=== PATIENT | male | born 1955 | race Caucasian/White ===

== ENCOUNTER 2016-07-22 02:51 | Emergency (ER) | payer BC, MEDICAID ==
[~2016-07-22] VITALS: Ht 172.7 cm; Wt 77.0 kg
[2016-07-22 02:55] VITALS: Ht 172.7 cm; Wt 77.0 kg
[2016-07-22] MEDS ORDERED: ALPR0.5T PO (03:20)
[2016-07-22] MEDS ORDERED: TEMA30CA PO (03:20)
--- NOTE | 2016-07-22 03:27 | ERD ---
ER Documentation Chief Complaint Date/Time DATE: 07/22/16 TIME: 03:25 Chief Complaint states needs medication refill HPI 60-year-old male presents here in emergency department for refill of medication for insomnia. Patient ran out of his medicines, was told by primary care doctor that he needs to get another primary doctor. Patient ran out of these temazepam and alprazolam, patient needs this for sleeping. Patient denies any other complaints. Patient denies homicidal or suicidal ideations. Patient denies any palpitations or irregular heartbeat. Patient cannot see another primary care doctor in the next day, needs 2-3 days worth of supply of medications. ROS All systems reviewed and are negative except as per history of present illness. Medications Home Meds Active Scripts Temazepam* (Temazepam*) 30 Mg Capsule, 30 MG PO HS Y for INSOMNIA, #3 CAP Prov:ERLIN ZARATE [employer]HER 07/22/16 Alprazolam* (Xanax*) 0.5 Mg Tab, 0.5 MG PO Q8H Y for INSOMNIA, #10 TAB Prov:ERLIN ZARATE [employer]GR[employer]HER 07/22/16 Allergies Allergies: Coded Allergies: No Known Drug Allergies (Verified Allergy, Unknown, 07/22/16) PMhx/Soc Medical and Surgical Hx: pt denies Surgical Hx Hx Miscellaneous Medical Probl: Yes (Insomnia) FmHx Family History: No coronary disease, No diabetes, No other Physical Exam Vitals Vital Signs Date Time Temp Pulse Resp B/P Pulse Ox O2 Delivery O2 Flow Rate FiO2 07/22/16 02:55 97.2 81 20 176/94 97 Physical Exam GENERAL: The patient is well developed and appropriate for usual state of health, in no apparent distress. CHEST: Clear to auscultation bilaterally. There are no rales, wheezes or rhonchi. HEART: Regular rate and rhythm. No murmurs, clicks, rubs or gallops. No S3 or S4. ABDOMEN: Soft, nontender and nondistended. Good bowel sounds. No rebound or guarding. No gross peritonitis. No gross organomegaly or masses. No Tamez sign or McBurney point tenderness. BACK: No midline or flank tenderness. EXTREMITIES: Equal pulses bilaterally. There is no peripheral clubbing, cyanosis or edema. No focal swelling or erythema. Full range of motion. Grossly neurovascularly intact. NEURO: Alert and oriented. Cranial nerves 2-12 intact. Motor strength in all 4 extremities with 5/5 strength. Sensation grossly intact. Normal speech and gait. SKIN: There is no apparent rash or petechia. The skin is warm and dry. HEMATOLOGIC AND LYMPHATIC: There is no evidence of excessive bruising or lymphedema. No gross cervical, axillary, or inguinal lymphadenopathy. Procedures/MDM Medical decision making: Patient symptoms are most likely consistent with insomnia, patient is here for medication refill, patient brought his bottles, filled 3 days supplies of medication, patient was given resources where he can go to get refills of his medication and for further primary care management. At this time, no symptoms of his suicidal or homicidal ideation. No symptoms of psychiatric emergencies at this time. Refilled 3 days worth of supply of medications, is advised to follow-up with primary care doctor and see a primary care doctor in 2-3 days before the refill of the rest of his medications. Patient was advised to return here in the emergency department for any worsening symptoms Departure Diagnosis: Primary Impression: Insomnia Insomnia type: unspecified Qualified Code: G47.00 - Insomnia, unspecified type Additional Impression: Encounter for medication refill Condition: Stable Patient Instructions: Taking Medicine Safely, Insomnia Referrals: COMMUNITY CLINICS YOU HAVE RECEIVED A MEDICAL SCREENING EXAM AND THE RESULTS INDICATE THAT YOU DO NOT HAVE A CONDITION THAT REQUIRES URGENT TREATMENT IN THE EMERGENCY DEPARTMENT. FURTHER EVALUATION AND TREATMENT OF YOUR CONDITION CAN WAIT UNTIL YOU ARE SEEN IN YOUR DOCTORS OFFICE WITHIN THE NEXT 1-2 DAYS. IT IS YOUR RESPONSIBILITY TO MAKE AN APPOINTMENT FOR FOLOW-UP CARE. IF YOU HAVE A PRIMARY DOCTOR --you should call your primary doctor and schedule an appointment IF YOU DO NOT HAVE A PRIMARY DOCTOR YOU CAN CALL OUR PHYSICIAN REFERRAL HOTLINE AT IF YOU CAN NOT AFFORD TO SEE A PHYSICIAN YOU CAN CHOSE FROM THE FOLLOWING ON LICENSE OF [facility] CL[facility] [id number] [facility] [address] [facility] [address] [facility] [address] [facility] [address] [facility] [address] [facility]. [facility] YOU HAVE RECEIVED A MEDICAL SCREENING EXAM AND THE RESULTS INDICATE THAT YOU DO NOT HAVE A CONDITION THAT REQUIRES URGENT TREATMENT IN THE EMERGENCY DEPARTMENT. FURTHER EVALUATION AND TREATMENT OF YOUR CONDITION CAN WAIT UNTIL YOU ARE SEEN IN YOUR DOCTORS OFFICE WITHIN THE NEXT 1-2 DAYS. IT IS YOUR RESPONSIBILITY TO MAKE AN APPOINTMENT FOR FOLOW-UP CARE. IF YOU HAVE A PRIMARY DOCTOR --you should call your primary doctor and schedule and appointment IF YOU DO NOT HAVE A PRIMARY DOCTOR YOU CAN CALL OUR PHYSICIAN REFERRAL HOTLINE AT . IF YOU CAN NOT AFFORD TO SEE A PHYSICIAN YOU CAN CHOSE FROM THE FOLLOWING [facility] INSTITUTIONS: [facility] [address] [place] [address] [facility] [address] [place], [place] [id number] [place] [address] [address] [place] [address] Additional Instructions: go to PMD for further refill of medications ERLIN ZARATE NP Jul 22, 2016 03:27
== END 2016-07-22 03:34 | disposition home or self-care (01) ==
LOC: FTE 02:51
DX: G47.00 Insomnia, unspecified (principal); Z76.0 Encounter for issue of repeat prescription
CPT/HCPCS: 99281

== ENCOUNTER 2017-11-29 00:34 | Emergency (ER) | END 2017-11-29 05:21 | disposition home or self-care (01) ==